=== PATIENT | male | born 1985 | race Caucasian/White ===

== ENCOUNTER 2020-12-03 10:19 | Emergency (ER) | payer OTHER ==
[~2020-12-03 10:19] MED LIST: PHENERGAN25 M1 PO; VENTOLIN HFA18 GM INH; VIBRAMYCIN100 MG PO
[2020-12-03 11:55] LABS: BASOPHIL 0.4 % (0-2); EOSINOPHIL 0.1 % (0-5); HCT 45.1 % (42.0-52.0); HGB 15.3 g/dl (13.2-18.0); LYMPHOCYTE 11.6 % (15-48); MCH 29.9 pg (25.0-31.0); MCHC 33.9 g/dL (32.0-36.0); MCV 88.1 fL (78.0-100.0); MONOCYTE 5.9 % (0-12); MPV 10.7 fL (6.0-9.5); NEUTROPHIL 81.6 % (41-80); NRBC 0; PLT 124 K/uL (150-400); RBC 5.12 M/uL (4.70-6.00); RDW 13.1 % (11.5-14.0)
[2020-12-03 12:27] LABS: BILIRUBIN 1+ mg/dL (NEGATIVE); BLOOD NEGATIVE Ery/uL (NEGATIVE); CLARITY CLEAR (CLEAR); COLOR YELLOW (YELLOW); GLUCOSE (U) 3+ mg/dL (NORMAL); LEUKOCYTES NEGATIVE Leu/uL (NEGATIVE); NITRITE NEGATIVE (NEGATIVE); PROTEIN 1+ mg/dL (NEGATIVE); SPECIFIC GRAVITY 1.025 (1.001-1.030)
[2020-12-03 12:31] LABS: SQUAMOUS EPITHELIAL CELLS RARE
[2020-12-03 12:32] LABS: ALBUMIN 3.1 g/dL (3.4-5.0); BILIRUBIN - TOTAL 1.1 mg/dL (0.2-1.0); CREATININE 0.89 mg/dL (0.67-1.17); GLOBULIN (CALCULATION) 4.7 g/dL; POTASSIUM 3.9 mmol/L (3.5-5.1); TOTAL PROTEIN 7.8 g/dL (6.4-8.2)
[2020-12-03] MEDS ORDERED: PRILOSEC20 MG PO (13:40)
== END 2020-12-03 14:04 | disposition home or self-care (01) ==
LOC: FER 10:19
PROVIDERS: Emergency Medicine
DX: J06.9 Acute upper respiratory infection, unspecified (principal); E86.0 Dehydration; K21.9 Gastro-esophageal reflux disease without esophagitis; E11.9 Type 2 diabetes mellitus without complications; I10 Essential (primary) hypertension; Z20.822 Contact with and (suspected) exposure to COVID-19; Z79.84 Long term (current) use of oral hypoglycemic drugs
CPT/HCPCS: 36415; 70486; 71045; 71275; 80053; 81001; 83605; 84484; 85025; 85379; 87040; 87077; 87186; 93005; J1200; J1885; J2930; J7030; Q9967